=== PATIENT | male | born 1990 | race Caucasian/White ===

== ENCOUNTER → 2019-05-05 | Outpatient (CLI) | payer OTHER | LOC: COL.RAD 13:18 | DX: M25.552 Pain in left hip (principal); Z98.890 Other specified postprocedural states | CPT/HCPCS: A9585; Q9967 ==

== ENCOUNTER → 2019-05-18 | Outpatient (CLI) | payer OTHER | LOC: COL.RAD 13:27 | DX: M25.552 Pain in left hip (principal) | CPT/HCPCS: J3301; Q9967 ==

== ENCOUNTER → 2020-09-04 | Outpatient (CLI) | payer OTHER | LOC: COL.RAD 08-24 10:00 | DX: M25.552 Pain in left hip (principal) | CPT/HCPCS: J3301; Q9967 ==